=== PATIENT | female | born 1995 | race Native Hawaiian/Other Pacific Islander ===

== ENCOUNTER 2016-07-21 11:30 | Emergency (ER) | payer OTHER ==
[2016-07-21] MEDS ORDERED: SODIUM CHLORIDE 0.9% 1,000 ML IV STA (12:14)
--- NOTE | 2016-07-21 12:42 | ED ---
Abdominal Pain HPI - General Chief Complaint: Abdominal Pain Stated Complaint: 16 WEEKS PREG AND CRAMPING Time Seen by Provider: 07/21/16 12:05 Source: patient, RN notes reviewed Mode of arrival: ambulatory Limitations: no limitations - History of Present Illness Initial Comments: 21-year-old female presents to emergency room chief complaint of abdominal pain. Patient is a . Patient is 16 weeks has had a ultrasound that confirms an IUP in this . Patient denies any vaginal bleeding or discharge. Patient states pain started last any chest discomfort and crampy type pain. Patient states she has had nausea vomiting throughout the . Patient states she was concerned due to the continued pain so she thought they should be seen. Patient denies any fever or chills. Patient denies any changes in bowel or bladder habits.Patient denies any recent fever, chills, shortness of breath, chest pain, back pain, nausea vomiting, numbness or tingling, dysuria or hematuria, constipation or diarrhea, headaches or visual changes, or any other current symptoms. - Related Data Home Medications Medication Instructions Recorded Confirmed Acetaminophen Tab [Tylenol Tab] 500 mg PO Q6H PRN 07/21/16 07/21/16 Allergies Allergy/AdvReac Type Severity Reaction Status Date / Time Penicillins Allergy Rash/Hives Verified 07/21/16 12:15 Review of Systems ROS Statement: Those systems with pertinent positive or pertinent negative responses have been documented in the HPI. ROS Other: All systems not noted in ROS Statement are negative. Past Medical History Past Medical History: No Reported History History of Any Multi-Drug Resistant Organisms: None Reported Past Surgical History: No Surgical Hx Reported Past Psychological History: No Psychological Hx Reported Smoking Status: Current every day smoker Past Alcohol Use History: None Reported Past Drug Use History: None Reported General Exam - General Exam Comments Initial Comments: General: The patient is awake and alert, in no distress, and does not appear acutely ill. Eye: Pupils are equal, round and reactive to light, extra-ocular movements are intact; there is normal conjunctiva bilaterally. No signs of icterus. Ears, nose, mouth and throat: There are moist mucous membranes and no oral lesions. Neck: The neck is supple, there is no tenderness. Cardiovascular: There is a regular rate and rhythm. No murmur, rub or gallop is appreciated. Respiratory: Lungs are clear to auscultation, respirations are non-labored, breath sounds are equal. No wheezes, stridor, rales, or rhonchi. Gastrointestinal: Soft, non-distended, suprapubic tenderness of the abdomen without masses or organomegaly noted. There is no rebound or guarding present. No CVA tenderness. Bowel sounds are unremarkable. Back: There is no tenderness to palpation in the midline. There is no obvious deformity. No rashes noted. Musculoskeletal: Normal ROM, no tenderness, There is no pedal edema. There is no calf tenderness or swelling. Sensation intact. Pulses equal bilaterally 2+. Neurological: CN II-XII intact, There are no obvious motor or sensory deficits. Coordination appears grossly intact. Speech is normal. Skin: Skin is warm and dry and no rashes or lesions are noted. Psychiatric: Cooperative, appropriate mood & affect, normal judgment. Limitations: no limitations Course Vital Signs 07/21/16 12:00 Temperature 98.8 F Pulse Rate 89 Respiratory 16 Rate Blood Pressure 121/61 O2 Sat by Pulse 100 Oximetry Medical Decision Making - Medical Decision Making 21-year-old female who is currently presents for suprapubic abdominal pain. This and patient's lab work and ultrasound are reviewed that showed no acute process. This time we discussed patient's abdominal pain could be from Mark any ALLERGIES. We discussed constipation as one of the possibilities. We discussed Jeffrey the urine for culture and follow-up on this. Discussed return parameters. Patient stated that she understood. She discussed follow- up. This time she'll be discharged home. - Lab Data Result diagrams: 07/21/16 12:30 07/21/16 12:30 Lab Results 07/21/16 07/21/16 07/21/16 Range/Units 12:30 12:30 12:30 WBC 10.3 (3.8-10.6) k/uL RBC 3.46 L (3.80-5.40) m/uL Hgb 11.3 L (11.4-16.0) gm/dL Hct 32.8 L (34.0-46.0) % MCV 94.6 (80.0-100.0) fL MCH 32.7 (25.0-35.0) pg MCHC 34.5 (31.0-37.0) g/dL RDW 12.9 (11.5-15.5) % Plt Count 307 (150-450) k/uL Neutrophils % 84 % Lymphocytes % 11 % Monocytes % 3 % Eosinophils % 0 % Basophils % 0 % Neutrophils # 8.7 H (1.3-7.7) k/uL Lymphocytes # 1.2 (1.0-4.8) k/uL Monocytes # 0.3 (0-1.0) k/uL Eosinophils # 0.0 (0-0.7) k/uL Basophils # 0.0 (0-0.2) k/uL Sodium 141 (137-145) mmol/L Potassium 4.3 (3.5-5.1) mmol/L Chloride 108 H (98-107) mmol/L Carbon Dioxide 24 (22-30) mmol/L Anion Gap 9 mmol/L BUN 4 L (7-17) mg/dL Creatinine 0.51 L (0.52-1.04) mg/dL Est GFR (MDRD) Af Amer >60 (>60 ml/min/1.73 sqM) Est GFR (MDRD) Non-Af >60 (>60 ml/min/1.73 sqM) Glucose 90 (74-99) mg/dL Calcium 9.5 (8.4-10.2) mg/dL Total Bilirubin 0.6 (0.2-1.3) mg/dL AST 16 (14-36) U/L ALT 22 (9-52) U/L Alkaline Phosphatase 59 (38-126) U/L Total Protein 7.1 (6.3-8.2) g/dL Albumin 4.0 (3.5-5.0) g/dL Amylase 34 (30-110) U/L Lipase 60 (23-300) U/L Urine Color Yellow Urine Appearance Cloudy H (Clear) Urine pH 8.0 (5.0-8.0) Ur Specific [place] 1.010 (1.001-1.035) Urine Protein Negative (Negative) Urine Glucose (UA) Negative (Negative) Urine Ketones Negative (Negative) Urine Blood Negative (Negative) Urine Nitrate Negative (Negative) Urine Bilirubin Negative (Negative) Urine Urobilinogen 3.0 (<2.0) mg/dL Ur Leukocyte Esterase Trace H (Negative) Urine WBC 11 H (0-5) /hpf Ur Squamous Epith Cells 11 H (0-4) /hpf Amorphous Sediment Few H (None) /hpf Urine Mucus Few H (None) /hpf - Radiology Data Radiology results: report reviewed, image reviewed Disposition Clinical Impression: Abdominal pain affecting Disposition: HOME SELF-CARE Condition: Stable Instructions: Abdominal Pain in (ED) Additional Instructions: Please use medication as discussed. Please follow up with family doctor if symptoms have not improved over the next two days. Please return to the emergency room if your symptoms increase or worsen or for any other concerns. Referrals: Delma Tadeo MD [STAFF PHYSICIAN] - 1-2 days Time of Disposition: 14:29
[2016-07-21 12:45] LABS: Basophils % (A) 0 %; CH 33.2; CHCM 35.2; Eosinophils % (A) 0 %; HCT 32.8 % (34.0-46.0); HDW 2.29; HGB 11.3 gm/dL (11.4-16.0); Luc # (Auto) 0.07; Luc % (Auto) 1; Lymphocytes # (A) 1.2 k/uL (1.0-4.8); Lymphocytes % (A) 11 %; MCH 32.7 pg (25.0-35.0); MCHC 34.5 g/dL (31.0-37.0); MCV 94.6 fL (80.0-100.0); Mean Platelet Volume 6.9; Monocytes # (A) 0.3 k/uL (0-1.0); Monocytes % (A) 3 %; Neutrophils # (A) 8.7 k/uL (1.3-7.7); Neutrophils % (A) 84 %; RBC 3.46 m/uL (3.80-5.40); RDW 12.9 % (11.5-15.5); WBC 10.3 k/uL (3.8-10.6); WBC (Perox) 10.73
[2016-07-21 12:52] LABS: Amorphous Sediment,Urine Few /hpf; Appearance,Urine Cloudy (Clear); Bilirubin,Urine Negative (Negative); Glucose,Urine (UA) Negative (Negative); Ketones,Urine Negative (Negative); Leukocyte Esterase,Urine Trace (Negative); Mucus,Urine Few /hpf; Nitrite,Urine Negative (Negative); Particle Count 13441; Protein,Urine Negative (Negative); Squamous Epithelial Cell,Urine 11 /hpf (0-4); UA Billing (MACRO vs. MICRO) MICRO; WBC,Urine 11 /hpf (0-5)
[2016-07-21 12:54] LABS: ALT 22 U/L (9-52); AST 16 U/L (14-36); Alkaline Phosphatase 59 U/L (38-126); Amylase 34 U/L (30-110); Anion Gap 9 mmol/L; Blood Urea Nitrogen 4 mg/dL (7-17); Calcium 9.5 mg/dL (8.4-10.2); Carbon Dioxide 24 mmol/L (22-30); Chloride 108 mmol/L (98-107); Glucose 90 mg/dL (74-99); Non-African American GFR(MDRD) >60 (>60 ml/min/1.73 sqM); Potassium 4.3 mmol/L (3.5-5.1); Sodium 141 mmol/L (137-145); Total Bilirubin 0.6 mg/dL (0.2-1.3); Total Protein 7.1 g/dL (6.3-8.2)
--- NOTE | 2016-07-21 14:25 | US ---
EXAMINATION TYPE: US OB >= 14 wk fetus DATE OF EXAM: 07/21/2016 1:35 PM COMPARISON: 06/20/2016 CLINICAL HISTORY: LLQ pain, nausea, vomiting x 3 days TECHNIQUE: Transabdominal (TA) GESTATIONAL AGE / DATING Physician Established: not established Dates by LMP: unknown Dates by First Scan: (16 weeks/5 days) EDC: 12/31/2016 Dates by Current Scan: (17 weeks/0 days) EDC: 12/29/2016 SURVEY IUP: single PLACENTA: anterior PREVIA: none HAROLDO: 10.7 cm Normal CERVICAL LENGTH (transabdominal: norm > 3.0cm): 3.1 cm BIOMETRY PRESENTATION: Vertex LIE: Longitudinal BPD: 3.6 cm 17 weeks / 0 days HC: 13.4 cm 16 weeks / 6 days AC: 11.2 cm 17 weeks / 0 days FL: 2.2 cm 16 weeks / 5 days ESTIMATED WEIGHT IN GRAMS: 172.0 grams ESTIMATED WEIGHT IN LBS/OZS: 0 lbs. 6 oz. WEIGHT PERCENTAGE BASED ON ESTABLISHED DATES: 52.9% HC/AC: 1.2 Normal FL/AC: 19.9 Normal HEART RATE: 142 bpm RHYTHM: Normal. Note is made anatomy was not assessed. Impression: 1. Single, viable, IUP,17 weeks/0 days, EDC: 12/29/2016, HR 142bpm, bowel noted at LLQ at patient's a laura of pain
[2016-07-21] MEDS ORDERED: ACETAMINOPHEN TAB 500 MG TAB PO STA (14:27)
[2016-07-21 14:55] VITALS: BP 104/55; PULSE 77; RESP 18; TEMP 98.3
== END 2016-07-21 15:00 | disposition home or self-care (01) ==
LOC: EC 11:30
DX: O26.892 Other specified pregnancy related conditions, second trimester (principal); R10.30 Lower abdominal pain, unspecified; O21.9 Vomiting of pregnancy, unspecified; O99.332 Smoking (tobacco) complicating pregnancy, second trimester; F17.200 Nicotine dependence, unspecified, uncomplicated; Z3A.17 17 weeks gestation of pregnancy; Z88.0 Allergy status to penicillin
CPT/HCPCS: 36415; 76805; 80053; 81001; 82150; 83690; 85025; 87086; 96360; 96361; 99284

== ENCOUNTER → 2016-07-31 | Outpatient (CLI) | payer OTHER ==
[2016-07-31 11:56] LABS: CH 33.1; CHCM 34.6; HGB 10.8 gm/dL (11.4-16.0); MCH 32.5 pg (25.0-35.0); MCHC 33.8 g/dL (31.0-37.0); MCV 96.1 fL (80.0-100.0); Mean Platelet Volume 7.9; RBC 3.33 m/uL (3.80-5.40); RDW 13.2 % (11.5-15.5); WBC 8.5 k/uL (3.8-10.6)
[2016-07-31 12:17] LABS: ALT 21 U/L (9-52); AST 16 U/L (14-36); Glucose 83 mg/dL (74-99); Non-African American GFR(MDRD) >60 (>60 ml/min/1.73 sqM); Uric Acid 3.4 mg/dL (3.7-7.4)
[2016-07-31 12:48] LABS: Hepatitis B Surface Ag Index 0.05
[2016-07-31 17:14] LABS: Treponemal Ab Non-Reactive (Non-Reactive)
[2016-08-01 09:39] LABS: HIV-1/HIV-2 Ab Screen NONREAC (NON REAC)
== END | disposition home or self-care (01) ==
LOC: LABWHC1 11:35
PROVIDERS: ATTEND Obstetrics & Gynecology
DX: Z34.82 Encounter for supervision of other normal pregnancy, second trimester (principal); Z3A.00 Weeks of gestation of pregnancy not specified
CPT/HCPCS: 36415; 82565; 82947; 84450; 84460; 84550; 85027; 86762; 86777; 86778; 86780; 86850; 86900; 86901; 87340; 87389

== ENCOUNTER → 2016-09-24 | Outpatient (CLI) | payer OTHER ==
[2016-09-24 10:07] LABS: CH 33.1; CHCM 33.7; HCT 32.4 % (34.0-46.0); HDW 2.24; HGB 10.8 gm/dL (11.4-16.0); MCH 33.1 pg (25.0-35.0); MCHC 33.5 g/dL (31.0-37.0); MCV 98.8 fL (80.0-100.0); Mean Platelet Volume 7.9; RBC 3.27 m/uL (3.80-5.40); RDW 12.9 % (11.5-15.5); WBC 10.3 k/uL (3.8-10.6)
== END | disposition home or self-care (01) ==
LOC: LABWHC1 08:43
PROVIDERS: ATTEND Obstetrics & Gynecology
DX: Z34.82 Encounter for supervision of other normal pregnancy, second trimester (principal); Z3A.00 Weeks of gestation of pregnancy not specified
CPT/HCPCS: 36415; 82950; 85027; 86850

== ENCOUNTER 2016-10-22 17:13 | Observation (INO) | payer OTHER ==
[2016-10-22 17:31] LABS: Appearance,Urine Clear (Clear); Bilirubin,Urine Negative (Negative); Glucose,Urine (UA) Negative (Negative); Ketones,Urine Negative (Negative); Leukocyte Esterase,Urine Negative (Negative); Nitrite,Urine Negative (Negative); Protein,Urine Negative (Negative); Specific Gravity,Urine 1.002 (1.001-1.035); UA Billing (MACRO vs. MICRO) CHEM; Urobilinogen,Urine <2.0 mg/dL (<2.0)
[2016-10-22] MEDS: LACTATED RINGERS 2,000 ML IV SCH ×3 (18:00→20:34)
[2016-10-22] MEDS: NIFEdipine 10 MG CAP PO PRN ×3 (18:57→19:38)
--- NOTE | 2016-10-22 19:36 | US ---
EXAMINATION TYPE: US OB >= 14 wk fetus DATE OF EXAM: 10/22/2016 7:20 PM COMPARISON: June 20, 2016 CLINICAL HISTORY: FHR decelerations 29 weeks TECHNIQUE: Transabdominal (TA) GESTATIONAL AGE / DATING Physician Established: (29 weeks/2 days) EDC: 01/05/2017 Dates by LMP: Unsure Dates by First Scan: (29 weeks/3 days) EDC: 01/04/2017 Dates by Current Scan: (28 weeks/3 days) EDC: 01/11/2017 SURVEY IUP: Single PLACENTA: Anterior PREVIA: No Previa HAROLDO: 19.0 cm CERVICAL LENGTH (transabdominal: norm > 3.0cm): 3.5 cm BIOMETRY PRESENTATION: Breech LIE: Longitudinal BPD: 7.31 cm 29 weeks / 2 days HC: 27.27 cm 29 weeks / 5 days AC: 23.88 cm 28 weeks / 1 days FL: 5.31 cm 28 weeks / 1 days ESTIMATED WEIGHT IN GRAMS: 1224 grams ESTIMATED WEIGHT IN LBS/OZS: 2 lbs. 11 oz. WEIGHT PERCENTAGE BASED ON ESTABLISHED DATES: 13% HC/AC: 1.14 Normal FL/AC: 22.25 Normal HEART RATE: 153 bpm RHYTHM: Normal Viable IUP with an DAMARIS of 01/11/2017 on this exam IMPRESSION: The ultrasound gestational age is 28 weeks 3 days. The weight is 13% tile compared to last exam . The possibility of mild IUGR should be considered.
[2016-10-22] MEDS ORDERED: ACETAMINOPHEN TAB 325 MG TAB PO PRN (20:29)
[2016-10-22 20:37] VITALS: RESP 16
--- NOTE | 2016-10-22 22:40 | P.HPOB ---
History of Present Illness H&P Date: 10/22/16 Chief Complaint: Contractions This is a 21-year-old female 2 para 1 with an estimated date of confinement of 01/05/2017 based on her early first trimester ultrasound, estimated gestational age of 29-3/7 weeks, who presents to labor and delivery with complaints of contractions since approximate 2 PM today. She denies any rupture membranes or bleeding. She admits to good movement at this time. course has been with Dr. Courtney and has been uncomplicated up until this point. record is unavailable at this time. Her FFN was negative in triage. Pelvic ultrasound was obtained in triage and shows fetus in breech presentation with cervical length of 3.5 cm and infant weight of 2 lbs. 11 oz. or 13th percentile placenta is anterior with no previa noted. Obstetrical history: . History of 1 vaginal delivery at 39 weeks. She states that she did have preeclampsia at the end and was induced for that reason. She was never placed on magnesium or blood pressure medications. Gynecologic history: She denies any sexually transmitted diseases. Review of Systems Constitutional: Denies chills, Denies fever Cardiovascular: Denies chest pain, Denies shortness of breath Genitourinary: Reports pelvic pain, Reports Neurological: Denies numbness, Denies weakness Psychiatric: Denies anxiety, Denies depression Past Medical History Additional Past Medical History / Comment(s): History of preeclampsia with her last History of Any Multi-Drug Resistant Organisms: None Reported Past Surgical History: Orthopedic Surgery Additional Past Surgical History / Comment(s): right knee- age 11. left shoulder- age 14 Past Anesthesia/Blood Transfusion Reactions: No Reported Reaction Past Psychological History: No Psychological Hx Reported Smoking Status: Current every day smoker (States approximately half a pack per day) Past Alcohol Use History: None Reported Past Drug Use History: None Reported - Past Family History Mother Family Medical History: Cancer Additional Family Medical History / Comment(s): lymphoma, multiple myleoma Medications and Allergies Home Medications Medication Instructions Recorded Confirmed Type Acetaminophen Tab [Tylenol Tab] 500 mg PO Q6H PRN 07/21/16 07/21/16 History Allergies Allergy/AdvReac Type Severity Reaction Status Date / Time Penicillins Allergy Rash/Hives Verified 10/22/16 17:18 Exam Osteopathic Statement: *. No significant issues noted on an osteopathic structural exam other than those noted in the History and Physical/Consult. - Vital Signs Vital signs: Vital Signs Temp Pulse Resp BP Pulse Ox 10/22/16 20:36 98.6 F 110 H 16 131/66 10/22/16 17:50 97.8 F 87 18 138/83 100 Intake and Output 10/22/16 10/22/16 10/22/16 06:59 14:59 22:59 Intake Total 1999 Balance 1999 Intake: Intake, IV Titration 2000 Amount Lactated Ringers 2,000 ml 2000 @ 999 mls/hr IV .Q2H1M [facility] Rx#:[id number] Other: # Voids 2 Weight 63.503 kg Patient Weight 10/23/16 06:59 Weight 63.503 kg HEENT: Within normal limits Heart: Regular rate and rhythm Lungs: Clear to auscultation bilaterally Abdomen: , soft heart tones: Reactive with occasional small variable deceleration Contractions: Every 2-3 minutes Cervix: Closed/50%/-3 station Extremities: Negative Homans Assessment and Plan (1) uterine contractions in third trimester, antepartum Status: Acute Plan: Will admit for 24-hour observation due to continued contractions despite IV hydration and Procardia protocol with 3 doses. Will obtain CBC and give her Tylenol for pain as needed. We'll continue with Procardia 10 mg every 6 hours. If she begins to make cervical change or shows any other signs of distress, will consider transfer to tertiary care center.
--- NOTE | 2016-10-22 22:52 | P.MSEPDOC ---
Presenting Problems - Arrival Data Date of Arrival on Unit: 10/22/16 Time of Arrival on Unit: 17:13 Mode of Transport: Portable - Complaint OB-Reason for Admission/Chief Complaint: Possible Onset of Labor Medical History - Information : 2 Para: 1 Term: 1 : 0 Abortions: Spontaneous or Elective: 0 Number of Living Children: 1 - Gestational Age Expected Date of Delivery: 01/05/17 Gestational Age by DAMARIS (wks/days): 29 Weeks and 2 Days - History Complications: Smoker Review of Systems - Review of Systems Constitutional: No problems Breast: No problems ENT: No problems Cardiovascular: No problems Respiratory: No problems Gastrointestinal: No problems Genitourinary: No problems Musculoskeletal: No problems Neurological: No problems Skin: No problems Vital Signs - Temperature Temperature: 98.6 F Temperature Source: Temporal Artery Scan - Pulse Right Pulse Oximetery Pulse Rate: 110 Pulse Assessment Method: Pulse Oximetry - Respirations Respiratory Rate: 16 - Blood Pressure Right Arm Blood Pressure: 131/66 Blood Pressure Mean: 87 Blood Pressure Source: Automatic Cuff Medical Screen Scoring (Pre) - Cervical Exam Dilation: 0 cm = 0 Membranes: Intact - Uterine Contractions Frequency: < 36 weeks = 6 Duration: > 40 seconds = 2 Intensity: N/A - Maternal Vital Signs Maternal Temperature: N/A Maternal Blood Pressure: N/A Signs of Preeclampsia: N/A Maternal Respirations: N/A - Maternal Trauma Maternal Trauma: N/A - Assessment Baseline FHR: 140 Heart Rate - NICHD Category: Category I (Normal) = 0 NST: Reactive Position: N/A Station: N/A - Total Score Total Score (Pre): 8 - Level of Risk Level of Risk: Medium (6-9) Physician Notification (Pre) - Physician Notified Physician Notified Date: 10/22/16 Physician Notified Time: 17:50 Physician/Practitioner Notifed:: Dr Hoff Spoke With: Telephone New Order Received: Yes Medical Screen Scoring (Post) - Cervical Exam Dilation: 0 cm = 0 Membranes: Intact - Uterine Contractions Frequency: < 36 weeks = 6 Duration: > 40 seconds = 2 - Assessment Heart Rate - NICHD Category: Category I (Normal) = 0 - Total Score Total Score (Post): 8 - Post Treatment Level of Risk Post Treatment Level of Risk: Medium (6-9) Physician Notification (Post) - Physician Notified Physician Notified Date: 10/22/16 Physician Notified Time: 20:10 Physician/Practitioner Notified:: Dr Hoff New Order Received: Yes - Notification Comment Comment: admit OBV, IV hydration, procardia q6, continuous monitoring at this time, diet as tolerated, tylenol prn for pain Disposition - Disposition OB Disposition: Observe, LDRP Suite I agree with the RN Medical Screening Exam: Yes Risk & Benefit of care provided described in d/c instruction: No Risk & Benefit of Care Comment: NA Diagnosis: LABOR WITHOUT DELIVERY, THIRD TRIMESTER Additional Diagnoses: contractions
[2016-10-22 23:16] LABS: Basophils % (A) 0 %; CH 32.3; CHCM 33.7; Eosinophils # (A) 0.1 k/uL (0-0.7); Eosinophils % (A) 1 %; HCT 30.9 % (34.0-46.0); HDW 2.57; HGB 10.8 gm/dL (11.4-16.0); Luc % (Auto) 2; Lymphocytes # (A) 2.2 k/uL (1.0-4.8); Lymphocytes % (A) 20 %; MCH 33.8 pg (25.0-35.0); MCHC 35.1 g/dL (31.0-37.0); MCV 96.3 fL (80.0-100.0); Monocytes # (A) 0.6 k/uL (0-1.0); Monocytes % (A) 5 %; Neutrophils % (A) 72 %; RBC 3.21 m/uL (3.80-5.40); RDW 13.4 % (11.5-15.5); WBC 11.1 k/uL (3.8-10.6); WBC (Perox) 11.57
[2016-10-23 00:09] VITALS: TEMP 99.2
[2016-10-23] MEDS ORDERED: NIFEdipine 10 MG CAP PO SCH (01:30)
[2016-10-23] MEDS: NIFEdipine 10 MG CAP PO SCH ×2 (01:39→07:36)
[2016-10-23 01:41] VITALS: BP 113/60; PULSE 86
[2016-10-23] MEDS: LACTATED RINGERS 2,000 ML IV SCH (06:02)
[2016-10-23] MEDS ORDERED: LACTATED RINGERS 1,000 ML IV SCH (06:03)
[2016-10-23] MEDS ORDERED: BETAMET ACET-BETAMETH SOD PHOS 6 MG/ML VIAL IM SCH (08:00)
--- NOTE | 2016-10-23 09:02 | P.DS ---
Providers Date of admission: 10/22/16 20:16 Expected date of discharge: 10/23/16 Attending physician: Chantal Courtney Primary care physician: Chantal Courtney - Discharge Diagnosis(es) (1) uterine contractions in third trimester, antepartum Current Visit: Yes Status: Acute Hospital Course: 21-year-old presented at 29 weeks and 3 days complaining of contractions. She was vielka every 2-3 minutes. After final was negative and cervix is closed. Dr. Hoff was medical collections representative and give her some Procardia which calmed down the contractions. When I came in this morning I gave her a dose of Celestone because she is still having some contractions. She also was having some variables in the heart rate tracing. When she first came and there is some variables and then through the middle night there was some variables that went down to the 80s with good return to baseline and only lasting about 30-70 seconds. Overall the strip looks reassuring 140-145 with moderate variability and accelerations. Ultrasound showed the baby to have an HAROLDO of 19 cm, weight of 1224 g which they are calling 13th percentile. I discussed the case with the maternal medicine fellow at [facility] in [place]. They 're willing to see her today for a repeat ultrasound, umbilical Dopplers, HAROLDO and growth. She'll have to presented again tomorrow for another dose of Celestone. Patient Condition at Discharge: Stable Plan - Discharge Summary Discharge Medication List Acetaminophen Tab [Tylenol Tab] 500 mg PO Q6H PRN 07/21/16 [History] Follow up Appointment(s)/Referral(s): Chantal Courtney, [Primary Care Provider] - 1 Week (And to see MFM at [facility] [place] [place] in [place] today at 2pm) Discharge Disposition: HOME SELF-CARE
== END 2016-10-23 09:30 | disposition home or self-care (01) ==
LOC: FBPOP 17:13 → 4FBP 20:16
PROVIDERS: ADMIT Obstetrics & Gynecology; ATTEND Obstetrics & Gynecology
DX: O60.03 Preterm labor without delivery, third trimester (principal); O99.333 Smoking (tobacco) complicating pregnancy, third trimester; F17.200 Nicotine dependence, unspecified, uncomplicated; Z3A.29 29 weeks gestation of pregnancy; Z88.0 Allergy status to penicillin
CPT/HCPCS: 59025; 96360; 96361; 96372; 82731; 85025; 81003; 76805; G0463; G0378 ×2; J0702; 99214

== ENCOUNTER 2016-10-27 10:47 | Outpatient (CLI) | payer OTHER ==
[2016-10-27 11:37] VITALS: BP 156/92; PULSE 68; RESP 16; TEMP 96.7
[2016-10-27 12:03] LABS: Amorphous Sediment,Urine Rare /hpf; Appearance,Urine Clear (Clear); Bacteria,Urine Rare /hpf; Bilirubin,Urine Negative (Negative); Glucose,Urine (UA) Negative (Negative); Ketones,Urine Negative (Negative); Leukocyte Esterase,Urine Moderate (Negative); Nitrite,Urine Negative (Negative); Particle Count 3119; Protein,Urine 1+ (Negative); RBC,Urine <1 /hpf (0-5); Specific Gravity,Urine 1.003 (1.001-1.035); Squamous Epithelial Cell,Urine 1 /hpf (0-4); UA Billing (MACRO vs. MICRO) MICRO; Urobilinogen,Urine <2.0 mg/dL (<2.0); WBC,Urine 1 /hpf (0-5)
[2016-10-27 12:03] LABS: Basophils % (A) 0 %; CH 33.2; CHCM 34.3; Eosinophils # (A) 0.1 k/uL (0-0.7); Eosinophils % (A) 0 %; HCT 29.4 % (34.0-46.0); Luc # (Auto) 0.17; Luc % (Auto) 1; Lymphocytes % (A) 14 %; MCHC 33.9 g/dL (31.0-37.0); MCV 97.3 fL (80.0-100.0); Mean Platelet Volume 9.4; Monocytes # (A) 0.9 k/uL (0-1.0); Monocytes % (A) 6 %; Neutrophils # (A) 11.7 k/uL (1.3-7.7); Neutrophils % (A) 79 %; RBC 3.02 m/uL (3.80-5.40); WBC 14.8 k/uL (3.8-10.6); WBC (Perox) 15.24
[2016-10-27 12:18] LABS: ALT 71 U/L (9-52); AST 97 U/L (14-36); Blood Urea Nitrogen 9 mg/dL (7-17); LDH 909 U/L (313-618); Non-African American GFR(MDRD) >60 (>60 ml/min/1.73 sqM); Uric Acid 6.2 mg/dL (3.7-7.4)
[2016-10-27] MEDS ORDERED: MAGNESIUM SULFATE-WATER PMX 4 GM in WATER FOR INJECTION 50 50ML.BAG IVPB ONE ×2 (12:36→13:30)
[2016-10-27] MEDS ORDERED: LACTATED RINGERS 1,000 ML IV SCH (12:45)
[2016-10-27] MEDS ORDERED: MAGNESIUM SULFATE-WATER PMX 20 GM in WATER FOR INJECTION 1 500ML.BAG IV SCH (12:45)
--- NOTE | 2016-10-27 12:50 | P.HPOB ---
History of Present Illness H&P Date: 10/27/16 Chief Complaint: contractions, elevated BP 21 year old presents at 29 weeks 5 days complaining of contractions. SHe did have contractions last week and had a neg FFN, cervix was closed. She had some variables on NST and was given an appt with MFM that day. Had mildly elevated dopplers but BPP was 8/8 and reactive NST. She did have 2 doses of celestone on 10/23 and 10/24. Today her cervix is 1/thick. She is vielka but also has elevated BPs and elevated liver enzymes. She has pre-eclampsia so will be put on mag sulfate and sent by ambulance to [facility] where they can manage her pre-eclampsia and delivery/care of . Review of Systems All systems: negative Constitutional: Denies chills, Denies fever Eyes: denies blurred vision, denies pain Ears, nose, mouth and throat: Denies headache, Denies sore throat Cardiovascular: Denies chest pain, Denies shortness of breath Respiratory: Denies cough Gastrointestinal: Denies abdominal pain, Denies diarrhea, Denies nausea, Denies vomiting Genitourinary: Denies dysuria, Denies hematuria Musculoskeletal: Denies myalgias Integumentary: Denies pruritus, Denies rash Neurological: Denies numbness, Denies weakness Psychiatric: Denies anxiety, Denies depression Endocrine: Denies fatigue, Denies weight change Past Medical History Past Medical History: No Reported History Additional Past Medical History / Comment(s): History of preeclampsia with her last History of Any Multi-Drug Resistant Organisms: None Reported Past Surgical History: Orthopedic Surgery Additional Past Surgical History / Comment(s): right knee- age 11. left shoulder- age 14 Past Anesthesia/Blood Transfusion Reactions: No Reported Reaction Past Psychological History: No Psychological Hx Reported Smoking Status: Current every day smoker Past Alcohol Use History: None Reported Past Drug Use History: None Reported - Past Family History Mother Family Medical History: Cancer Additional Family Medical History / Comment(s): lymphoma, multiple myleoma Medications and Allergies Allergies Allergy/AdvReac Type Severity Reaction Status Date / Time Penicillins Allergy Rash/Hives Verified 10/22/16 17:18 Exam Osteopathic Statement: *. No significant issues noted on an osteopathic structural exam other than those noted in the History and Physical/Consult. - Vital Signs Vital signs: Vital Signs Temp Pulse Resp BP 10/27/16 11:22 96.7 F L 68 16 156/92 Intake and Output 10/26/16 10/27/16 10/27/16 22:59 06:59 14:59 Other: Weight 150 kg Patient Weight 10/28/16 06:59 Weight 150 kg HEart: RRR Lungs: CTAB ABdomen: soft, nontender Extremeties: neg luz's Results Result Diagrams: 10/27/16 11:48 10/27/16 11:48 Abnormal Lab Results - Last 24 Hours (Table) 10/27/16 10/27/16 10/27/16 Range/Units 11:38 11:48 11:48 WBC 14.8 H (3.8-10.6) k/uL RBC 3.02 L (3.80-5.40) m/uL Hgb 10.0 L (11.4-16.0) gm/dL Hct 29.4 L (34.0-46.0) % Neutrophils # 11.7 H (1.3-7.7) k/uL AST 97 H (14-36) U/L ALT 71 H (9-52) U/L Lactate Dehydrogenase 909 H (313-618) U/L Urine Protein 1+ H (Negative) Ur Leukocyte Esterase Moderate H (Negative) Amorphous Sediment Rare H (None) /hpf Urine Bacteria Rare H (None) /hpf Assessment and Plan (1) Severe pre-eclampsia Status: Acute Plan: 1. start mag sulfate 2. call EMS and transfer to [facility]. case was discussed with the M fellow; Ruddy Dobbs
--- NOTE | 2016-10-27 12:59 | US ---
EXAMINATION TYPE: US OB >= 14 wk fetus DATE OF EXAM: 10/27/2016 12:16 PM COMPARISON: None CLINICAL HISTORY: 21-year-old female labor TECHNIQUE: Transabdominal (TA) FINDINGS: GESTATIONAL AGE / DATING Physician Established: (30 weeks/0 days) EDC: 01/05/17 Dates by LMP: unknown Dates by First Scan: (30 weeks/1 days) EDC: 01/04/17 Dates by Current Scan: (29 weeks/1 days) EDC: 01/11/17 SURVEY IUP: Single PLACENTA: Anterior PREVIA: No Previa HAROLDO: 11.7 cm normal CERVICAL LENGTH (transabdominal: norm > 3.0cm): 3.0 cm BIOMETRY PRESENTATION: Vertex LIE: Longitudinal BPD: 7.5 cm 30 weeks / 2 days HC: 27.8 cm 30 weeks / 3 days AC: 24.7 cm 28 weeks / 6 days FL: 5.5 cm 29 weeks / 0 days ESTIMATED WEIGHT IN GRAMS: 1350 grams ESTIMATED WEIGHT IN LBS/OZS: 3 lbs. 0 oz. WEIGHT PERCENTAGE BASED ON ESTABLISHED DATES: 14.5% VS 13.0% on 10/22/16 (exam performed too soon for assessment of appropriate interval growth) HC/AC: 1.13 normal FL/AC: 22.28 normal HEART RATE: 142 bpm RHYTHM: Normal IMPRESSION: 1. Single live uterine with established gestational age of 30 weeks 0 days. Current ultraso und biometry is smaller but concordant (29 weeks 1 day). The ultrasound machine indicates EFW at the 15th percentile by Hadlock. 2. It has been too soon to assess for appropriate interval growth as compared to 10/22/2016. Further f ollowup as indicated given the EFW percentile. 3. Cervical length at the lower limits of normal at 3.0 cm.
== END 2016-10-27 13:47 ==
LOC: FBPOP 10:47
PROVIDERS: ATTEND Obstetrics & Gynecology
DX: O14.14 Severe pre-eclampsia complicating childbirth (principal); Z3A.29 29 weeks gestation of pregnancy
CPT/HCPCS: 59025; 96365; 82731; 82565; 83615; 84450; 84460; 84520; 84550; 85025; 81001; 76805; G0463; J3475 ×2; 51702; 96361; 99215

== ENCOUNTER 2018-09-02 20:13 | Emergency (ER) | payer OTHER ==
[2018-09-02] MEDS ORDERED: SODIUM CHLORIDE 0.9% 1,000 ML IV ONE (20:29)
[2018-09-02] MEDS ORDERED: ACETAMINOPHEN TAB 500 MG TAB PO STA (20:30)
[2018-09-02 20:58] LABS: Basophils % (A) 0 %; Eosinophils # (A) 0.1 k/uL (0-0.7); Eosinophils % (A) 1 %; HCT 37.4 % (34.0-46.0); HGB 12.5 gm/dL (11.4-16.0); Lymphocytes # (A) 1.1 k/uL (1.0-4.8); Lymphocytes % (A) 8 %; MCH 32.4 pg (25.0-35.0); MCHC 33.6 g/dL (31.0-37.0); MCV 96.7 fL (80.0-100.0); Mean Platelet Volume 7.2; Monocytes # (A) 0.3 k/uL (0-1.0); Monocytes % (A) 2 %; Neutrophils % (A) 88 %; Platelet Count 298 k/uL (150-450); RBC 3.86 m/uL (3.80-5.40); RDW 13.3 % (11.5-15.5); WBC 12.5 k/uL (3.8-10.6)
[2018-09-02 21:07] LABS: Potassium 3.5 mmol/L (3.5-5.1)
[2018-09-02 21:08] LABS: ALT 22 U/L (9-52); AST 19 U/L (14-36); Albumin 4.1 g/dL (3.5-5.0); Alkaline Phosphatase 64 U/L (38-126); Anion Gap 10 mmol/L; Blood Urea Nitrogen 5 mg/dL (7-17); Carbon Dioxide 22 mmol/L (22-30); Chloride 107 mmol/L (98-107); Glucose 110 mg/dL (74-99); Sodium 139 mmol/L (137-145); Total Bilirubin 0.6 mg/dL (0.2-1.3); Total Protein 7.2 g/dL (6.3-8.2)
[2018-09-02] MEDS ORDERED: KETOROLAC 30 MG/ML 1 ML VIAL IVP STA (21:34)
--- NOTE | 2018-09-02 21:35 | ED ---
General Adult HPI - General Chief complaint: Fever Stated complaint: High Fever/Loss of mobility/Bilateral ear pain Time Seen by Provider: 09/02/18 20:34 Source: patient Mode of arrival: ambulatory Limitations: no limitations - History of Present Illness Initial comments: Dictation was produced using [employer] dictation software. please excuse any grammatical, word or spelling errors. Chief Complaint: 23-year-old female no significant past medical history presents with fever and URI type symptoms. History of Present Illness: A 3-year-old female. She presents today with worsening URI type symptoms. Patient states she initially felt sick starting on Thursday. Patient states that her symptoms slowly progressed to today where they became really bad. Patient states that she's been having coughing, runny nose, sore throat. Patient's significant other was also sick with similar symptoms. She also has other family members have similar symptoms as well. The ROS documented in this emergency department record has been reviewed and confirmed by me. Those systems with pertinent positive or negative responses have been documented in the HPI. All other systems are other negative and/or noncontributory. PHYSICAL EXAM: General Impression: Alert and oriented x3, not in acute distress HEENT: Normocephalic atraumatic, extra-ocular movements intact, pupils equal and reactive to light bilaterally, mucous membranes moist, boggy nasal turbinates, erythematous posterior oropharynx Cardiovascular: Heart regular rate and rhythm, S1&S2 audible, no murmurs, rubs or gallops Chest: Lungs clear to auscultation bilaterally, no rhonchi, no wheeze, no rales Abdomen: Bowel sounds present, abdomen soft, non-tender, non-distended, no organomegaly Musculoskeletal: Pulses present and equal in all extremities, no peripheral edema Motor: Power 5/5 bilaterally, no focal deficits noted Neurological: CN II-XII grossly intact, no focal motor or sensory deficits noted Skin: Intact with no visualized rashes Psych: Normal affect and mood ED course: 23-year-old female presents with URI type symptoms. As upon arrival shows temperature 100.1, heart rate 133, rest of vital signs within acceptable limits.Laboratory evaluation obtained. Mild symptoms of 2.5. Metabolic panel is unremarkable. Urinalysis is positive for nitrates however there is 3 to be BCs. Urine sent for culture. Influenza and rapid strep test negative. Pending throat cultures. Chest x-ray shows findings to suggest pneumonia. Patient given 500 mg of azithromycin. She is given Tylenol and Toradol. Patient be discharged. She will be given prescription for antibiotics to treat pneumonia. Must follow-up with PCP upon discharge. - Related Data Home Medications Medication Instructions Recorded Confirmed Acetaminophen [Tylenol Extra 500 mg PO Q6H PRN 09/02/18 09/02/18 Strength] Ibuprofen [Motrin] 800 mg PO BID PRN 09/02/18 09/02/18 Previous Rx's Medication Instructions Recorded Azithromycin [Zithromax] 250 mg PO DAILY 4 Days #4 tab 09/02/18 Allergies Allergy/AdvReac Type Severity Reaction Status Date / Time Penicillins Allergy Rash/Hives Verified 09/02/18 20:37 Review of Systems ROS Statement: Those systems with pertinent positive or pertinent negative responses have been documented in the HPI. ROS Other: All systems not noted in ROS Statement are negative. Past Medical History Past Medical History: No Reported History Additional Past Medical History / Comment(s): History of preeclampsia with her last History of Any Multi-Drug Resistant Organisms: None Reported Past Surgical History: Orthopedic Surgery Additional Past Surgical History / Comment(s): right knee- age 11. left shoulder- age 14 Past Anesthesia/Blood Transfusion Reactions: No Reported Reaction Past Psychological History: No Psychological Hx Reported Smoking Status: Current every day smoker Past Alcohol Use History: Occasional Past Drug Use History: None Reported - Past Family History Mother Family Medical History: Cancer Additional Family Medical History / Comment(s): lymphoma, multiple myleoma General Exam Limitations: no limitations Course Vital Signs 09/02/18 09/02/18 09/02/18 20:24 21:55 23:26 Temperature 103.1 F H 101.3 F H 99.7 F H Pulse Rate 133 H 94 Respiratory 18 16 Rate Blood Pressure 133/88 116/75 O2 Sat by Pulse 98 96 Oximetry Medical Decision Making - Lab Data Result diagrams: 09/02/18 20:46 09/02/18 20:46 Lab Results 09/02/18 09/02/18 09/02/18 Range/Units 01:50 20:46 20:46 WBC 12.5 H (3.8-10.6) k/uL RBC 3.86 (3.80-5.40) m/uL Hgb 12.5 (11.4-16.0) gm/dL Hct 37.4 (34.0-46.0) % MCV 96.7 (80.0-100.0) fL MCH 32.4 (25.0-35.0) pg MCHC 33.6 (31.0-37.0) g/dL RDW 13.3 (11.5-15.5) % Plt Count 298 (150-450) k/uL Neutrophils % 88 % Lymphocytes % 8 % Monocytes % 2 % Eosinophils % 1 % Basophils % 0 % Neutrophils # 11.0 H (1.3-7.7) k/uL Lymphocytes # 1.1 (1.0-4.8) k/uL Monocytes # 0.3 (0-1.0) k/uL Eosinophils # 0.1 (0-0.7) k/uL Basophils # 0.0 (0-0.2) k/uL Sodium 139 (137-145) mmol/L Potassium 3.5 (3.5-5.1) mmol/L Chloride 107 (98-107) mmol/L Carbon Dioxide 22 (22-30) mmol/L Anion Gap 10 mmol/L BUN 5 L (7-17) mg/dL Creatinine 0.54 (0.52-1.04) mg/dL Est GFR (CKD-EPI)AfAm >90 (>60 ml/min/1.73 sqM) Est GFR (CKD-EPI)NonAf >90 (>60 ml/min/1.73 sqM) Glucose 110 H (74-99) mg/dL Plasma Lactic Acid Jerson (0.7-2.0) mmol/L Calcium 9.0 (8.4-10.2) mg/dL Total Bilirubin 0.6 (0.2-1.3) mg/dL AST 19 (14-36) U/L ALT 22 (9-52) U/L Alkaline Phosphatase 64 (38-126) U/L Total Protein 7.2 (6.3-8.2) g/dL Albumin 4.1 (3.5-5.0) g/dL Urine Color Urine Appearance (Clear) Urine pH (5.0-8.0) Ur Specific Celina (1.001-1.035) Urine Protein (Negative) Urine Glucose (UA) (Negative) Urine Ketones (Negative) Urine Blood (Negative) Urine Nitrite (Negative) Urine Bilirubin (Negative) Urine Urobilinogen (<2.0) mg/dL Ur Leukocyte Esterase (Negative) Urine RBC (0-5) /hpf Urine WBC (0-5) /hpf Ur Squamous Epith Cells (0-4) /hpf Urine Bacteria (None) /hpf Urine HCG, Qual (Not Detectd) Influenza Type A RNA (Not Detectd) Influenza Type B (PCR) (Not Detectd) Group A Strep Rapid Negative (Negative) 09/02/18 09/02/18 09/02/18 Range/Units 20:46 20:46 21:50 WBC (3.8-10.6) k/uL RBC (3.80-5.40) m/uL Hgb (11.4-16.0) gm/dL Hct (34.0-46.0) % MCV (80.0-100.0) fL MCH (25.0-35.0) pg MCHC (31.0-37.0) g/dL RDW (11.5-15.5) % Plt Count (150-450) k/uL Neutrophils % % Lymphocytes % % Monocytes % % Eosinophils % % Basophils % % Neutrophils # (1.3-7.7) k/uL Lymphocytes # (1.0-4.8) k/uL Monocytes # (0-1.0) k/uL Eosinophils # (0-0.7) k/uL Basophils # (0-0.2) k/uL Sodium (137-145) mmol/L Potassium (3.5-5.1) mmol/L Chloride (98-107) mmol/L Carbon Dioxide (22-30) mmol/L Anion Gap mmol/L BUN (7-17) mg/dL Creatinine (0.52-1.04) mg/dL Est GFR (CKD-EPI)AfAm (>60 ml/min/1.73 sqM) Est GFR (CKD-EPI)NonAf (>60 ml/min/1.73 sqM) Glucose (74-99) mg/dL Plasma Lactic Acid Jerson 1.0 (0.7-2.0) mmol/L Calcium (8.4-10.2) mg/dL Total Bilirubin (0.2-1.3) mg/dL AST (14-36) U/L ALT (9-52) U/L Alkaline Phosphatase (38-126) U/L Total Protein (6.3-8.2) g/dL Albumin (3.5-5.0) g/dL Urine Color Urine Appearance (Clear) Urine pH (5.0-8.0) Ur Specific Celina (1.001-1.035) Urine Protein (Negative) Urine Glucose (UA) (Negative) Urine Ketones (Negative) Urine Blood (Negative) Urine Nitrite (Negative) Urine Bilirubin (Negative) Urine Urobilinogen (<2.0) mg/dL Ur Leukocyte Esterase (Negative) Urine RBC (0-5) /hpf Urine WBC (0-5) /hpf Ur Squamous Epith Cells (0-4) /hpf Urine Bacteria (None) /hpf Urine HCG, Qual Not Detected (Not Detectd) Influenza Type A RNA Not Detected (Not Detectd) Influenza Type B (PCR) Not Detected (Not Detectd) Group A Strep Rapid (Negative) 09/02/18 Range/Units 21:50 WBC (3.8-10.6) k/uL RBC (3.80-5.40) m/uL Hgb (11.4-16.0) gm/dL Hct (34.0-46.0) % MCV (80.0-100.0) fL MCH (25.0-35.0) pg MCHC (31.0-37.0) g/dL RDW (11.5-15.5) % Plt Count (150-450) k/uL Neutrophils % % Lymphocytes % % Monocytes % % Eosinophils % % Basophils % % Neutrophils # (1.3-7.7) k/uL Lymphocytes # (1.0-4.8) k/uL Monocytes # (0-1.0) k/uL Eosinophils # (0-0.7) k/uL Basophils # (0-0.2) k/uL Sodium (137-145) mmol/L Potassium (3.5-5.1) mmol/L Chloride (98-107) mmol/L Carbon Dioxide (22-30) mmol/L Anion Gap mmol/L BUN (7-17) mg/dL Creatinine (0.52-1.04) mg/dL Est GFR (CKD-EPI)AfAm (>60 ml/min/1.73 sqM) Est GFR (CKD-EPI)NonAf (>60 ml/min/1.73 sqM) Glucose (74-99) mg/dL Plasma Lactic Acid Jerson (0.7-2.0) mmol/L Calcium (8.4-10.2) mg/dL Total Bilirubin (0.2-1.3) mg/dL AST (14-36) U/L ALT (9-52) U/L Alkaline Phosphatase (38-126) U/L Total Protein (6.3-8.2) g/dL Albumin (3.5-5.0) g/dL Urine Color Colorless Urine Appearance Clear (Clear) Urine pH 6.0 (5.0-8.0) Ur Specific Celina 1.002 (1.001-1.035) Urine Protein Negative (Negative) Urine Glucose (UA) Negative (Negative) Urine Ketones Negative (Negative) Urine Blood Negative (Negative) Urine Nitrite Positive H (Negative) Urine Bilirubin Negative (Negative) Urine Urobilinogen <2.0 (<2.0) mg/dL Ur Leukocyte Esterase Negative (Negative) Urine RBC 1 (0-5) /hpf Urine WBC 3 (0-5) /hpf Ur Squamous Epith Cells 4 (0-4) /hpf Urine Bacteria Rare H (None) /hpf Urine HCG, Qual (Not Detectd) Influenza Type A RNA (Not Detectd) Influenza Type B (PCR) (Not Detectd) Group A Strep Rapid (Negative) Disposition Clinical Impression: Pneumonia Disposition: HOME SELF-CARE Condition: Good Instructions (If sedation given, give patient instructions): Pneumonia (ED) Prescriptions: Azithromycin [Zithromax] 250 mg PO DAILY 4 Days #4 tab Is patient prescribed a controlled substance at d/c from ED?: No Referrals: None,Stated [Primary Care Provider] - 1-2 days Time of Disposition: 23:46
[2018-09-02 22:15] LABS: Appearance,Urine Clear (Clear); Bacteria,Urine Rare /hpf; Bilirubin,Urine Negative (Negative); Blood,Urine Negative (Negative); Color,Urine Colorless; Glucose,Urine (UA) Negative (Negative); Ketones,Urine Negative (Negative); Leukocyte Esterase,Urine Negative (Negative); Nitrite,Urine Positive (Negative); Protein,Urine Negative (Negative); RBC,Urine 1 /hpf (0-5); Specific Gravity,Urine 1.002 (1.001-1.035); Squamous Epithelial Cell,Urine 4 /hpf (0-4); Urobilinogen,Urine <2.0 mg/dL (<2.0)
--- NOTE | 2018-09-02 22:38 | XR ---
EXAM: XR Chest, 2 Views CLINICAL HISTORY: ITS.REASON XR Reason: Pain TECHNIQUE: Frontal and lateral views of the chest. COMPARISON: No relevant prior studies available. FINDINGS: Lungs: Right middle lobe airspace disease concerning for acute infiltrate. Pleural space: Unremarkable. No pneumothorax. Heart: Unremarkable. No cardiomegaly. Mediastinum: Unremarkable. Bones/joints: Unremarkable. IMPRESSION: Right middle lobe infiltrate which could represent pneumonia.
[2018-09-02] MEDS ORDERED: AZITHROMYCIN 500 MG TAB PO STA (22:47)
[2018-09-02 23:28] VITALS: BP 116/75; PULSE 94; RESP 16; TEMP 99.7
== END 2018-09-02 23:59 | disposition home or self-care (01) ==
LOC: EC 20:13
DX: J18.9 Pneumonia, unspecified organism (principal); F17.200 Nicotine dependence, unspecified, uncomplicated; Z88.0 Allergy status to penicillin
CPT/HCPCS: 36415; 80053; 83605; 85025; 81001; 81025; 87086; 87081; 87430; 87502; 71046; 99283; 96374; 96361; J1885

== ENCOUNTER 2021-10-02 03:26 | Emergency (ER) | payer OTHER ==
[2021-10-02 04:13] VITALS: TEMP 98.5
[2021-10-02] MEDS ORDERED: ACETAMINOPHEN TAB 325 MG TAB PO STA (04:14)
[2021-10-02] MEDS ORDERED: IBUPROFEN 600 MG TAB PO STA (04:14)
[2021-10-02] MEDS ORDERED: HYDROmorphone 1 MG/ML 1 ML SYRINGE IM STA (04:37)
--- NOTE | 2021-10-02 04:48 | XR ---
EXAMINATION TYPE: XR ankle complete RT DATE OF EXAM: 10/02/2021 COMPARISON: NONE HISTORY: Fall down the stairs. Pain. TECHNIQUE: 3 views FINDINGS: There is nondisplaced transverse fracture through the medial malleolus. There is oblique fr acture through the distal fibula. There is soft tissue swelling around the ankle joint. There is no d islocation. The talus is intact. Calcaneus is intact. IMPRESSION: There is bimalleolar fracture of the right ankle with soft tissue swelling. No significan t overall displacement.
[2021-10-02] MEDS ORDERED: ACET/COD 300 MG/30 MG STARTER PACK 6 TAB BTL PO STA (06:19)
--- NOTE | 2021-10-02 06:19 | ED ---
Fall HPI - General Chief Complaint: Fall Stated Complaint: right ankle pain, fall Time Seen by Provider: 10/02/21 05:45 Source: patient, family, RN notes reviewed Mode of arrival: wheelchair Limitations: physical limitation - History of Present Illness Initial Comments: This a 26-year-old female presents emergency Department chief complaint of right ankle injury. Patient states that her dog tripped her cholesterol her ankle. Patient is right ankle pain and swelling. No prior fractures. Patient had no other muscle skeletal injuries no head injury no foot pain. - Related Data Home Medications Medication Instructions Recorded Confirmed Acetaminophen [Tylenol Extra 500 mg PO Q6H PRN 09/02/18 09/02/18 Strength] Ibuprofen [Motrin] 800 mg PO BID PRN 09/02/18 09/02/18 Previous Rx's Medication Instructions Recorded Azithromycin [Zithromax] 250 mg PO DAILY 4 Days #4 tab 09/02/18 Allergies Allergy/AdvReac Type Severity Reaction Status Date / Time Penicillins Allergy Rash/Hives Verified 10/02/21 04:13 Review of Systems ROS Statement: Those systems with pertinent positive or pertinent negative responses have been documented in the HPI. ROS Other: All systems not noted in ROS Statement are negative. Past Medical History Past Medical History: No Reported History Additional Past Medical History / Comment(s): History of preeclampsia with her last History of Any Multi-Drug Resistant Organisms: None Reported Past Surgical History: Orthopedic Surgery Additional Past Surgical History / Comment(s): right knee- age 11. left shoulder- age 14 Past Anesthesia/Blood Transfusion Reactions: No Reported Reaction Past Psychological History: No Psychological Hx Reported Smoking Status: Current every day smoker Past Alcohol Use History: Occasional Past Drug Use History: None Reported - Past Family History Mother Family Medical History: Cancer Additional Family Medical History / Comment(s): lymphoma, multiple myleoma General Exam Limitations: no limitations General appearance: alert, in no apparent distress Head exam: Present: atraumatic, normocephalic, normal inspection Respiratory exam: Present: normal lung sounds bilaterally. Absent: respiratory distress, wheezes, rales, rhonchi, stridor Cardiovascular Exam: Present: regular rate, normal rhythm, normal heart sounds. Absent: systolic murmur, diastolic murmur, rubs, gallop, clicks Extremities exam: Present: other (Right ankle there is lateral and medial malar tenderness, mild swelling, pain with range of motion no foot tenderness no proximal tib-fib tenderness) Neurological exam: Present: alert, oriented X3 Course Vital Signs 10/02/21 10/02/21 04:11 06:41 Temperature 98.5 F Pulse Rate 124 H 101 H Respiratory 18 16 Rate Blood Pressure 124/78 124/79 O2 Sat by Pulse 99 96 Oximetry Procedures - Orthopedic Splinting/Casting Injury #1 Side: right Lower Extremity Injury Location: short leg, ankle Lower Extremity Immobilizer: posterior splint, synthetic pre-padded splint Other Orthopedic Equipment: crutches Medical Decision Making - Medical Decision Making Right ankle is splinted, patient will follow-up with orthopedics. Return parameters were discussed. She is neurovascularly intact. Disposition Clinical Impression: Fall, Bimalleolar fracture of right ankle Disposition: HOME SELF-CARE Condition: Stable Instructions (If sedation given, give patient instructions): Ankle Fracture (ED) Additional Instructions: Please return to the Emergency Department if symptoms worsen or any other concerns. Is patient prescribed a controlled substance at d/c from ED?: No Referrals: None,Stated [Primary Care Provider] - 1-2 days Lawrence Burns MD [STAFF PHYSICIAN] - 1-2 days Time of Disposition: 06:19
[2021-10-02 06:41] VITALS: BP 124/79; PULSE 101; RESP 16
== END 2021-10-02 07:16 | disposition home or self-care (01) ==
LOC: EC 03:26
DX: S82.841A Displaced bimalleolar fracture of right lower leg, initial encounter for closed fracture (principal); F17.200 Nicotine dependence, unspecified, uncomplicated; Z88.0 Allergy status to penicillin; W54.1XXA Struck by dog, initial encounter
CPT/HCPCS: 99283; 96372; 29515; 73610; J1170

== ENCOUNTER → 2021-10-09 | Day surgery (SDC) | payer OTHER ==
[2021-10-07 09:32] VITALS: BMI 25.6
--- NOTE | 2021-10-08 20:35 | P.HPOR ---
History of Present Illness H&P Date: 10/08/21 Chief Complaint: Right ankle fracture New Patient Foot/Ankle Office Note/H&P Age: 27 year Height: 5'10" Weight: 150 lbs BMI: 21.52 kg/m2 Subjective: This is a 27 year old male that presents today for initial evaluation regarding a right ankle injury that occurred on 10/02/2021 when her dog ran between her legs and she fell down the stairs at home. She was seen in the emergency department and was placed in a ankle splint and has been nonweightbearing using crutches. She has significant pain around her right ankle. She denies any prior injury to this ankle in the past and has been resting, icing and elevating extremity. 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 Physical Examination: RLE: 11/21 EHL/FHL/PF/DF. SILT L5-S1. 2+/4 DP/PT pulses palpated. TTP over lateral/medial malleolus. Bruising and swelling present. Compartments are soft and compressible. Imaging: X-Rays of the right ankle demonstrate a trimalleolar ankle fracture with an oblique distal fibula fracture and transverse medial malleolus fracture. Small avulsion off the posterior malleolus. Impression: 1.) Right Trimalleolar ankle fracture, displaced. Plan: Diagnosis and treatment options were discussed with the patient. I recommended surgical intervention for her right trimalleolar ankle fracture. Risks and benefits of surgery were discussed with the patient including bleeding, damage surrounding tissue need for further surgery, possibility of irritable hardware requiring removal in the future. She was agreeable with this plan of action will be scheduled for outpatient right ankle open reduction internal fixation in the near future. She is to be off of work until further evaluation. Postoperatively she will require likely 4-6 weeks of immobilization until fracture healing is present on imaging. -Harjit Gambino DO Orthopedic Surgeon Past Medical History Past Medical History: Hypertension Additional Past Medical History / Comment(s): Hx Preeclampsia with last , continued with elevated BP for short time afterward but resolved now. History of Any Multi-Drug Resistant Organisms: None Reported Past Surgical History: Orthopedic Surgery Additional Past Surgical History / Comment(s): Right knee- age 11, left shoulder- age 14. Past Anesthesia/Blood Transfusion Reactions: No Reported Reaction Past Psychological History: No Psychological Hx Reported Smoking Status: Current every day smoker Past Alcohol Use History: Occasional Additional Past Alcohol Use History / Comment(s): Has been smoking since age 17, 4-5 cigarettes daily. Past Drug Use History: None Reported - Past Family History Mother Family Medical History: Cancer Additional Family Medical History / Comment(s): Lymphoma, multiple myleoma. Medications and Allergies Home Medications Medication Instructions Recorded Confirmed Type No Known Home Medications 10/07/21 10/07/21 History Allergies Allergy/AdvReac Type Severity Reaction Status Date / Time Penicillins Allergy Rash/Hives Verified 10/07/21 09:21 Physical Examination Osteopathic Statement: *. No significant issues noted on an osteopathic structural exam other than those noted in the History and Physical/Consult.
[~2021-10-09] MED LIST: DEXAMETHASONE SOD PHOSPHATE 4 MG/ML 1 ML VIAL IV ONE; DEXAMETHASONE SOD PHOSPHATE 4 MG/ML 1 ML VIAL ONE; HYDROcodone/APAP 5-325MG 1 EACH TAB ONE; HYDROcodone/APAP 5-325MG 1 EACH TAB PO ONE; HYDROmorphone (PF) 1 MG/ML ONE; LACTATED RINGERS 1,000 ML IV ONE; LACTATED RINGERS 1,000 ML IV SCH; LIDOCAINE 1% (10MG/ML) FOR IV START INTRADERMA PRN; LIDOCAINE 1% INJ 10MG/ML (20 ML MDV) ONE; MIDAZOLAM 2 MG/2 ML VIAL IVP ONE; ONDANSETRON 4 MG/2 ML VIAL IVP ONE; PROPOFOL 10 MG/ML 20 ML VIAL IV ONE; ROPIVACAINE 5 MG/ML 30 ML VIAL ONE; SODIUM CHLORIDE 0.9% (PF) 10 ML VIAL ONE; SUCCINYLCHOLINE CHLORIDE 100 MG/5 ML SYR IV ONE; diphenhydrAMINE 50 MG/ML 1 ML VIAL IVP ONE; fentaNYL (PF) 50 MCG/ML 2 ML AMP ONE
[2021-10-09 10:03] VITALS: RESP 16
--- NOTE | 2021-10-09 11:06 | P.ANPRN ---
Procedure Note - Anesthesia - Nerve Block Performed Right Adductor Canal Single Time Out Performed: Yes (1047) Date of Procedure: 10/09/21 Procedure Start Time: 10:50 Procedure Stop Time: 11:00 Location of Patient: PreOp Indication: Acute Post-Operative Pain, Requested by Surgeon Sedation Type: Sedate with meaningful contact maintained Preparation: Sterile Prep Position: Supine Catheter: None Needle Types: Pajunk Needle Gauge: 20 Ultrasound used to visualize needle placement: Yes Ultrasound used to observe medication spread: Yes Injectate: 0.5% Ropivacaine (see comment for volume) Blood Aspirated: No Pain Paresthesia on Injection Noted: No Resistance on Injection: Normal Image Stored and Saved: Yes Events: Uneventful and Well Tolerated (20 mL of block solution containing- 10 mL of 0.5% preservative-free ropivacaine mixed with 10 mL of preservative free normal saline)
--- NOTE | 2021-10-09 11:08 | P.ANPRN ---
Procedure Note - Anesthesia - Nerve Block Performed Right Popliteal Single Time Out Performed: Yes (1047) Date of Procedure: 10/09/21 Procedure Start Time: 10:50 Procedure Stop Time: 11:00 Location of Patient: PreOp Indication: Acute Post-Operative Pain, Requested by Surgeon Sedation Type: Sedate with meaningful contact maintained Preparation: Sterile Prep Position: Right Lateral Catheter: None Needle Types: Pajunk Needle Gauge: 20 Ultrasound used to visualize needle placement: Yes Ultrasound used to observe medication spread: Yes Injectate: 0.5% Ropivacaine (see comment for volume) (25 mL of block solution containing- 15 mL of 0.5% preservative-free ropivacaine mixed with 4 MG of dexamethasone, and 9 mL of preservative free normal saline) Blood Aspirated: No Pain Paresthesia on Injection Noted: No Resistance on Injection: Normal Image Stored and Saved: Yes Events: Uneventful and Well Tolerated
[2021-10-09 14:39] VITALS: TEMP 97.2
[2021-10-09] MEDS: HYDROmorphone 0.5 MG/0.5 ML SYRINGE IVP PRN ×3 (14:46→15:09)
[2021-10-09 15:54] VITALS: BP 122/86; PULSE 68
--- NOTE | 2021-10-09 15:57 | FL ---
Fluoroscopy INDICATION: Pain FINDINGS: Fluoroscopy time: 21 seconds. Images obtained: 3. IMPRESSIONS: 1. Documentation of fluoroscopy.
--- NOTE | 2021-10-09 21:58 | P.OP ---
Date of Procedure: 10/09/21 Preoperative Diagnosis: 1.) Right ankle trimalleolar fracture, displaced. Postoperative Diagnosis: 1.) Right ankle trimalleolar fracture, displaced. Procedure(s) Performed: Open treatment of right trimalleolar ankle fracture, includes internal fixation, when performed, medial and/or lateral malleolus ([id number]). Implants: 1.) Arthrex anatomic distal fibular locking plate. 2.) 4.0 Arthrex stainless steel cannulated screws 55mm x2. Anesthesia: BELEN, regional Surgeon: Harjit Gambino Milling Machine Tender #1: Alek Lind Estimated Blood Loss (ml): 30 Pathology: none sent Condition: stable Disposition: PACU Description of Procedure: This is a 26 year old female who sustained a right trimalleolar ankle fracture after a fall down stairs after she tripped over her dog. Due to fracture pattern and amount of displacement surgical intervention was planned and she presents today for right ankle ORIF. Risks and benefits of surgery were discussed with the patient including bleeding, damage to surrounding tissue, infection, need for further surgery, post traumatic arthritis, irritable hardware as well as risks of anesthesia including pulmonary embolism, DVT, and even and the patient wished to proceed with surgical intervention. The patient was seen in the pre-operative area by myself. Consent and H&P were completed and updated. The correct extremity was marked in the pre-operative area by myself and all other questions were answered. Operative Narrative: The patient was brought to the operating room by the department of anesthesia. The patient was transferred to the operative bed and all meche pr ominences were well padded. Pre-operative time out was performed indicating the correct patient, procedure and laterality. All in the room agreed. Pre-operative antibiotics were given prior to skin incision. The patient was then drifted off to sleep by the department of anesthesia. A nonsterile tourniquet was then applied to the operative extremity and the right lower extremity was then prepped and draped in normal sterile fashion. The operative extremity was the exsanguinated with an esmarch bandage and the tourniquet was inflated to 250mmHg. Posterolateral approach to the fibula was performed and a longitudinal incision was made over the distal fibula with 10 blade scalpel. Blunt dissection was taken down through subcutaneous tissues identifying the superficial peroneal nerve at the proximal portion of the incision and keeping it protected throughout the procedure. Scalpel was then used to incise periosteum and the fracture line was identified. There was extensive comminution of the anterior cortex of the fibula with a free floating devitalized piece of bone located in the anterior soft tissue which was excised and too small for any type of fixation. Fracture site was irrigated a debrided of hematoma with curette. Pointed reduction clamp was used to hold the fracture out to length and satisfactory reduction was able to be held but was unstable due to comminution of the anterior cortex at the fracture size. A lag screw was then place from anterior superior to posterior inferior by technique. Neutralization plate was then applied with an Arthrex anatomic distal locking plate. Nonlocking screws were drilled and filled proximally to bring the plate to the bone followed by unicortical locking screws in the distal fragment. Adequate reduction was appreciated on fluoroscopy. The wound was then irrigated and closure was performed with 3-0 vicryl followed by 3-0 nylon suture. Attention was then drawn to the medial aspect of the ankle. Curvilinear incision was made along the medial malleolus. Blunt dissection was taken down through subcutaneous tissues and saphenous vein/nerve was identified and protected. Periosteum was incised to reveal the fracture. Fracture hematoma was evacuated with irrigation and suction and interposed periosteum was removed. The posterior tibialis tendon was found to by entrapped in the fracture site posteriorly, this was carefully removed from the fracture site to allow for reduction. A 2.5mm drill was used to drill unicortically just proximal to the fracture line to allow for pointed reduction clamp placement. A pointed reduction clamp was then used to compress the fracture and approximation of the lateral cortex was able to be achieved but after initial reduction there appeared to by roughly 3-4 mm of anterior displacement. Reduction clamp was then removed and fracture size was opened once more and further debridement of fracture site was performed and no soft tissue appeared to be in the fracture site. Reduction clamp was the re-applied and acceptable reduction was achieved viewed on fluoroscopy. K-wire was then inserted along the posterior and anterior aspect of the malleoli and advanced across the fracture site. Near cortex was drilled and measured and 2 55mm 4.0 partially threaded cannulated screws were inserted under power followed by final tightening with hand. Final images were taken revealing acceptable reduction of fracture fragments and a minimally displaced stable posterior malleolus avulsion fracture. External stress was performed and no instability was appreciated. Wound was irrigated and closed with 3-0 VIcryl suture followed by 3-0 nylon. Adaptic, 4x4s, and a plaster splint was applied. Tourniquet was let down and the digits had immediate perfusion. Alek RIVAS was present during the case and assisted in fracture reduction, hardware placement and retraction. The patient was then woken by the department of anesthesia and transferred to PACU in stable condition. Harjit Gambino D.O. Orthopedic Surgeon
== END | disposition home or self-care (01) ==
LOC: OR 09:09
PROVIDERS: ATTEND Orthopaedic Surgery Hand Surgery
DX: S82.851A Displaced trimalleolar fracture of right lower leg, initial encounter for closed fracture (principal); W10.9XXA Fall (on) (from) unspecified stairs and steps, initial encounter; Y92.009 Unspecified place in unspecified non-institutional (private) residence as the place of occurrence of the external cause; G89.18 Other acute postprocedural pain; I10 Essential (primary) hypertension; F17.210 Nicotine dependence, cigarettes, uncomplicated; Z80.7 Family history of other malignant neoplasms of lymphoid, hematopoietic and related tissues; Z88.0 Allergy status to penicillin
CPT/HCPCS: 27822; 64999; 64445; 76942; 81025; 73600; C1713 ×2; J2250; J1200; J1100; J2405; J0690; J2001; J3010; J1170 ×2; J2795; J2704; J0330

== ENCOUNTER 2024-01-16 05:51 | Emergency (ER) | payer OTHER ==
--- NOTE | 2024-01-16 06:31 | ED ---
Arrhythmia/Palpitations HPI - General Chief Complaint: Arrhythmia/Palpitations Stated Complaint: Heart Racing, Headache Time Seen by Provider: 01/16/24 06:29 Source: patient, family, RN notes reviewed Mode of arrival: ambulatory Limitations: no limitations - History of Present Illness Initial Comments: 28-year-old female presented to the ER with a chief complaint of palpitations. Patient reports a past medical history or benign heart murmur during and has not followed up with a scientist engineer. She reports she woke up about 2 hours ago with her heart racing. She states she was feeling mildly short of breath and experiencing lightheadedness during this episode. She denies any chest pain then or currently. She reports she occasionally gets these racing episodes but is able to resolve them with relaxation techniques. She states they were unsuccessful this morning which brought her to the ER. Denies any history of blood clots, blood thinner use or control use. Denies nausea, vomiting, abdominal pain, constipation/diarrhea, urinary complaints or peripheral edema. - Related Data Previous Rx's Medication Instructions Recorded HYDROcodone/APAP 5-325MG [[place] 1 - 2 tab PO Q6HR PRN #24 tab 10/09/21 5-325] Allergies Allergy/AdvReac Type Severity Reaction Status Date / Time Penicillins Allergy Rash/Hives Verified 01/16/24 05:54 Review of Systems ROS Statement: Those systems with pertinent positive or pertinent negative responses have been documented in the HPI. ROS Other: All systems not noted in ROS Statement are negative. Past Medical History Past Medical History: Hypertension Additional Past Medical History / Comment(s): Hx Preeclampsia with last , continued with elevated BP for short time afterward but resolved now. History of Any Multi-Drug Resistant Organisms: None Reported Past Surgical History: Orthopedic Surgery Additional Past Surgical History / Comment(s): Right knee- age 11, left shoulder- age 14. Past Anesthesia/Blood Transfusion Reactions: No Reported Reaction Past Psychological History: No Psychological Hx Reported Smoking Status: Current every day smoker Past Alcohol Use History: Occasional Past Drug Use History: None Reported - Past Family History Mother Family Medical History: Cancer Additional Family Medical History / Comment(s): Lymphoma, multiple myleoma. General Exam Limitations: no limitations General appearance: alert, in no apparent distress Head exam: Present: atraumatic, normocephalic, normal inspection Eye exam: Present: normal appearance, PERRL, EOMI. Absent: scleral icterus, conjunctival injection, periorbital swelling Pupils: Present: normal accommodation ENT exam: Present: normal exam, normal oropharynx, mucous membranes moist Neck exam: Present: normal inspection. Absent: tenderness, meningismus, lymphadenopathy Respiratory exam: Present: normal lung sounds bilaterally. Absent: respiratory distress, wheezes, rales, rhonchi, stridor Cardiovascular Exam: Present: normal rhythm, tachycardia, normal heart sounds Extremities exam: Present: normal inspection, full ROM, normal capillary refill. Absent: tenderness, pedal edema, joint swelling, calf tenderness Neurological exam: Present: alert, oriented X3, CN II-XII intact Psychiatric exam: Present: normal mood, anxious (mild) Skin exam: Present: warm, dry, intact, normal color. Absent: rash Course Vital Signs 01/16/24 01/16/24 01/16/24 05:51 06:30 07:58 Temperature 98.1 F 98.6 F Pulse Rate 125 H 88 77 Respiratory 22 18 18 Rate Blood Pressure 168/102 158/106 124/81 O2 Sat by Pulse 95 99 100 Oximetry Medical Decision Making - Medical Decision Making Was pt. sent in by a medical professional or institution (, PA, SAIL REPAIRER, urgent care, hospital, or custodial...) When possible be specific @ -No Did you speak to anyone other than the patient for history (EMS, parent, family, police, friend...)? What history was obtained from this source @ - aiding in HPI. Did you review nursing and triage notes (agree or disagree)? Why? @ -I reviewed and agree with nursing and triage notes Were old charts reviewed (outside hosp., previous admission, EMS record, old EKG, old radiological studies, urgent care reports/EKG's, custodial records)? Report findings @ -No old charts were reviewed Differential Diagnosis (chest pain, altered mental status, abdominal pain women, abdominal pain men, vaginal bleeding, weakness, fever, dyspnea, syncope, headache, dizziness, GI bleed, back pain, seizure, CVA, palpatations, mental health, musculoskeletal)? @ -Differential Palpitations: Ventricular arrhythmias, atrial arrhythmias, m yocardial infarction, anemia, thyrotoxicosis, electrolyte imbalance, hypokalemia, pulmonary embolism, pulmonary disease, drugs, alcohol, anxiety, stress....This is not meant to be an all-inclusive list. EKG interpreted by me (3pts min.). @ -As above X-rays interpreted by me (1pt min.). @ -Chest x-ray interpreted by me negative for acute cardiopulmonary process. CT interpreted by me (1pt min.). @ -None done U/S interpreted by me (1pt. min.). @ -None done What testing was considered but not performed or refused? (CT, X-rays, U/S, labs)? Why? @ -None What meds were considered but not given or refused? Why? @ -None Did you discuss the management of the patient with other professionals (pro fessionals i.e. , PA, SAIL REPAIRER, lab, RT, psych nurse, medical social consultant, barrel cutter, teacher, communications officer, bottle caser)? Give summary @ -No Was smoking cessation discussed for >3mins.? @ -I discussed smoking cessation for greater than 3 minutes. The risk of smoking were discussed with the patient including but not limited to risks of cancer, stroke, coronary artery disease and COPD. Also discussed with patient were multiple methods of quitting smoking. Lastly we discussed the financial cost of smoking. Was critical care preformed (if so, how long)? @ -No Were there social determinants of health that impacted care today? How? (Homelessness, low income, unemployed, alcoholism, drug addiction, t ransportation, low edu. Level, literacy, decrease access to med. care, prison, rehab)? @ -Patient does not currently have a primary care physician. Was there de-escalation of care discussed even if they declined (Discuss DNR or withdrawal of care, Hospice)? DNR status @ -No What co-morbidities impacted this encounter? (DM, HTN, Smoking, COPD, CAD, Cancer, CVA, ARF, Chemo, Hep., AIDS, mental health diagnosis, sleep apnea, morbid obesity)? @ -Smoker Was patient admitted / discharged? Hospital course, mention meds given and route, prescriptions, significant lab abnormalities, going to OR and other pertinent info. @ -Discharge. 28-year-old female presented to the ER with a chief complaint of palpitations. History and physical exam completed. Vitals upon arrival remarkable for tachycardia at 125 and blood pressure 168/102. Patient no signs of acute distress and nontoxic-appearing. Exam remarkable for tachycardia otherwise unremarkable. Laboratory studies obtained unimpressive. D-dimer 0.48, troponin <0.012. EKG showing sinus tachycardia no acute ST segment or T wave abnormalities. Chest x-ray interpreted by me negative for acute cardiopulmonary process. Patient received IV Toradol for symptom control. Upon reevaluation, patient resting comfortably in exam room in no signs of acute distress. Tachycardia and elevated blood pressure resolved without intervention. Vitals upon reevaluation remarkable for heart rate 77, blood pressure 124/81. Symptoms believed to be anxiety in nature. Heart score 1. Patient stable for discharge at this time. Strict return parameters discussed. Patient discharged in stable condition with follow-up to PCP. Referrals given. Patient verbally expressed understanding and agreed with care plan. Case discussed with ED attending, Dr. Rao. Undiagnosed new problem with uncertain prognosis? @ -No Drug Therapy requiring intensive monitoring for toxicity (Heparin, Nitro, Insulin, Cardizem)? @ -No Were any procedures done? @ -No Diagnosis/symptom? @ -Palpitations Acute, or Chronic, or Acute on Chronic? @ -Acute Uncomplicated (without systemic symptoms) or Complicated (systemic symptoms)? @ -Uncomplicated Side effects of treatment? @ -No Exacerbation, Progression, or Severe Exacerbation? @ -No Poses a threat to life or bodily function? How? (Chest pain, USA, AR, pneumonia, PE, COPD, DKA, ARF, appy, cholecystitis, CVA, Diverticulitis, Homicidal, Suicidal, threat to staff... and all critical care pts) @ -No - Lab Data Result diagrams: 01/16/24 06:27 01/16/24 06:27 Lab Results 01/16/24 01/16/24 01/16/24 Range/Units 06:27 06:27 06:27 WBC 7.3 (3.8-10.6) k/uL RBC 3.89 (3.80-5.40) m/uL Hgb 12.8 (11.4-16.0) gm/dL Hct 39.2 (34.0-46.0) % MCV 100.8 H (80.0-100.0) fL MCH 32.8 (25.0-35.0) pg MCHC 32.6 (31.0-37.0) g/dL RDW 12.2 (11.5-15.5) % Plt Count 325 (150-450) k/uL MPV 8.0 Neutrophils % 53 % Lymphocytes % 39 % Monocytes % 4 % Eosinophils % 2 % Basophils % 1 % Neutrophils # 3.9 (1.3-7.7) k/uL Lymphocytes # 2.9 (1.0-4.8) k/uL Monocytes # 0.3 (0-1.0) k/uL Eosinophils # 0.1 (0-0.7) k/uL Basophils # 0.0 (0-0.2) k/uL PT 10.1 (10.0-12.5) sec INR 0.9 (<1.2) APTT 23.5 (22.0-30.0) sec D-Dimer 0.48 (<0.60) mg/L FEU Sodium 138 (137-145) mmol/L Potassium 3.9 (3.5-5.1) mmol/L Chloride 110 H (98-107) mmol/L Carbon Dioxide 14 L (22-30) mmol/L Anion Gap 14 mmol/L BUN 6 L (7-17) mg/dL Creatinine 0.60 (0.52-1.04) mg/dL Est GFR (CKD-EPI)AfAm >90 (>60 ml/min/1.73 sqM) Est GFR (CKD-EPI)NonAf >90 (>60 ml/min/1.73 sqM) Glucose 121 H (74-99) mg/dL Calcium 9.7 (8.4-10.2) mg/dL Magnesium 1.9 (1.6-2.3) mg/dL Total Bilirubin 0.4 (0.2-1.3) mg/dL AST 44 H (14-36) U/L ALT 34 (4-34) U/L Alkaline Phosphatase 45 (38-126) U/L Troponin I (0.000-0.034) ng/mL Total Protein 7.9 (6.3-8.2) g/dL Albumin 4.7 (3.5-5.0) g/dL 01/16/24 Range/Units 06:27 WBC (3.8-10.6) k/uL RBC (3.80-5.40) m/uL Hgb (11.4-16.0) gm/dL Hct (34.0-46.0) % MCV (80.0-100.0) fL MCH (25.0-35.0) pg MCHC (31.0-37.0) g/dL RDW (11.5-15.5) % Plt Count (150-450) k/uL MPV Neutrophils % % Lymphocytes % % Monocytes % % Eosinophils % % Basophils % % Neutrophils # (1.3-7.7) k/uL Lymphocytes # (1.0-4.8) k/uL Monocytes # (0-1.0) k/uL Eosinophils # (0-0.7) k/uL Basophils # (0-0.2) k/uL PT (10.0-12.5) sec INR (<1.2) APTT (22.0-30.0) sec D-Dimer (<0.60) mg/L FEU Sodium (137-145) mmol/L Potassium (3.5-5.1) mmol/L Chloride (98-107) mmol/L Carbon Dioxide (22-30) mmol/L Anion Gap mmol/L BUN (7-17) mg/dL Creatinine (0.52-1.04) mg/dL Est GFR (CKD-EPI)AfAm (>60 ml/min/1.73 sqM) Est GFR (CKD-EPI)NonAf (>60 ml/min/1.73 sqM) Glucose (74-99) mg/dL Calcium (8.4-10.2) mg/dL Magnesium (1.6-2.3) mg/dL Total Bilirubin (0.2-1.3) mg/dL AST (14-36) U/L ALT (4-34) U/L Alkaline Phosphatase (38-126) U/L Troponin I <0.012 (0.000-0.034) ng/mL Total Protein (6.3-8.2) g/dL Albumin (3.5-5.0) g/dL - EKG Data -: EKG Interpreted by Me EKG Comments: EKG taken at 5: 58 showing sinus tachycardia with inverted t waves in lead III. No other acute ST segment or T wave abnormalities. Ventricular rate 112, MS in terval 120, QRS duration 82, QT/QTc 293/359. - Radiology Data Radiology results: report reviewed, image reviewed Disposition Clinical Impression: Palpitations Disposition: HOME SELF-CARE Condition: Stable Instructions (If sedation given, give patient instructions): Heart Palpitations (ED) Additional Instructions: Please follow-up with PCP in the next 1 to 2 days. Return to the ER for any new or worsening concerns. Is patient prescribed a controlled substance at d/c from ED?: No Referrals: None,Stated [Primary Care Provider] - 1-2 days Forms: Area PCPs Time of Disposition: 07:52
--- NOTE | 2024-01-16 06:41 | XR ---
EXAMINATION TYPE: XR chest 2V DATE OF EXAM: 01/16/2024 COMPARISON: Prior chest x-ray September 02, 2018 HISTORY: Palpitations TECHNIQUE: Frontal and lateral views of the chest are obtained. FINDINGS: There is no focal air space opacity, pleural effusion, or pneumothorax seen. The cardiac silhouette size is stable and within normal limits. The osseous structures are intact. IMPRESSION: No acute process.
[2024-01-16] MEDS: KETOROLAC 15 MG/ML 1 ML VIAL IVP STA (06:47)
[2024-01-16 06:51] VITALS: RESP 18
[2024-01-16 07:14] LABS: Basophils % (A) 1 %; Eosinophils # (A) 0.1 k/uL (0-0.7); Eosinophils % (A) 2 %; HCT 39.2 % (34.0-46.0); HGB 12.8 gm/dL (11.4-16.0); Lymphocytes # (A) 2.9 k/uL (1.0-4.8); Lymphocytes % (A) 39 %; MCH 32.8 pg (25.0-35.0); MCHC 32.6 g/dL (31.0-37.0); MCV 100.8 fL (80.0-100.0); Monocytes # (A) 0.3 k/uL (0-1.0); Monocytes % (A) 4 %; Neutrophils # (A) 3.9 k/uL (1.3-7.7); Neutrophils % (A) 53 %; Platelet Count 325 k/uL (150-450); RBC 3.89 m/uL (3.80-5.40); RDW 12.2 % (11.5-15.5); WBC 7.3 k/uL (3.8-10.6)
[2024-01-16 07:21] LABS: ALT 34 U/L (4-34); AST 44 U/L (14-36); African American GFR (CKD) >90 (>60 ml/min/1.73 sqM); Albumin 4.7 g/dL (3.5-5.0); Alkaline Phosphatase 45 U/L (38-126); Anion Gap 14 mmol/L; Blood Urea Nitrogen 6 mg/dL (7-17); Calcium 9.7 mg/dL (8.4-10.2); Carbon Dioxide 14 mmol/L (22-30); Chloride 110 mmol/L (98-107); Glucose 121 mg/dL (74-99); Magnesium 1.9 mg/dL (1.6-2.3); Non-African American GFR(CKD) >90 (>60 ml/min/1.73 sqM); Potassium 3.9 mmol/L (3.5-5.1); Sodium 138 mmol/L (137-145); Total Bilirubin 0.4 mg/dL (0.2-1.3); Total Protein 7.9 g/dL (6.3-8.2)
[2024-01-16 07:27] LABS: INR 0.9 (<1.2); Partial Thromboplastin Time 23.5 sec (22.0-30.0); Prothrombin Time 10.1 sec (10.0-12.5)
[2024-01-16 08:01] VITALS: BP 124/81; PULSE 77; TEMP 98.6
== END 2024-01-16 08:01 | disposition home or self-care (01) ==
LOC: EC 05:51
DX: R00.2 Palpitations (principal); F17.200 Nicotine dependence, unspecified, uncomplicated; Z88.0 Allergy status to penicillin
CPT/HCPCS: 99285; 96374; 36415; 93005; 85379; 80053; 83735; 84484; 85025; 85610; 85730; 71046; 99406; J1885

== ENCOUNTER 2025-02-10 00:22 | Emergency (ER) | payer OTHER ==
--- NOTE | 2025-02-10 00:58 | ED ---
General Adult HPI - General Source: patient Mode of arrival: ambulatory Limitations: no limitations, physical limitation <Dusty Hamilton - Last Filed: 02/10/25 00:58> <Agustin Oviedo - Last Filed: 02/10/25 05:10> - General Chief complaint: Extremity Injury, Lower Stated complaint: Can't put any weight on r ankle Time Seen by Provider: 02/10/25 00:43 - History of Present Illness Initial comments: 29-year-old female presenting with chief complaint of right ankle pain. States that she was trying to get into the truck when she slipped and fell. She has pain and swelling over the lateral malleolus. She has history of previous surgery to this ankle 3 years ago. States that she cannot bear weight without severe pain. No numbness or tingling. She can still move her toes. (Dusty Hamilton) - Related Data Previous Rx's Medication Instructions Recorded HYDROcodone/APAP 5-325MG [[place] 1 - 2 tab PO Q6HR PRN #24 tab 10/09/21 5-325] Allergies Allergy/AdvReac Type Severity Reaction Status Date / Time Penicillins Allergy Rash/Hives Verified 02/10/25 00:46 Review of Systems ROS Other: All systems not noted in ROS Statement are negative. <Dusty Hamilton - Last Filed: 02/10/25 00:58> ROS Other: All systems not noted in ROS Statement are negative. <Agustin Oviedo - Last Filed: 02/10/25 05:10> ROS Statement: Those systems with pertinent positive or pertinent negative responses have been documented in the HPI. Past Medical History Past Medical History: Hypertension Additional Past Medical History / Comment(s): Hx Preeclampsia with last , continued with elevated BP for short time afterward but resolved now. History of Any Multi-Drug Resistant Organisms: None Reported Past Surgical History: Orthopedic Surgery Additional Past Surgical History / Comment(s): Right knee- age 11, left shoulder- age 14. Past Anesthesia/Blood Transfusion Reactions: No Reported Reaction Past Psychological History: No Psychological Hx Reported Smoking Status: Current every day smoker Past Alcohol Use History: Occasional Past Drug Use History: None Reported - Past Family History Mother Family Medical History: Cancer Additional Family Medical History / Comment(s): Lymphoma, multiple myleoma. <Dusty Hamilton - Last Filed: 02/10/25 00:58> General Exam Limitations: no limitations, physical limitation General appearance: alert, in no apparent distress Head exam: Present: atraumatic, normocephalic, normal inspection Eye exam: Present: normal appearance, EOMI Neck exam: Present: normal inspection. Absent: meningismus Respiratory exam: Absent: respiratory distress Cardiovascular Exam: Present: regular rate Right Ankle exam: Present: tenderness, swelling. Absent: full ROM Neurological exam: Present: alert, oriented X3 Psychiatric exam: Present: normal affect, normal mood Skin exam: Present: warm, dry, normal color <Dusty Hamilton - Last Filed: 02/10/25 00:58> Course Vital Signs 02/10/25 00:40 Temperature 98.1 F Pulse Rate 90 Respiratory 18 Rate Blood Pressure 127/84 O2 Sat by Pulse 99 Oximetry Medical Decision Making <Agustin Oviedo - Last Filed: 02/10/25 05:10> - Medical Decision Making Patient care signed out to me by Winifred Hamilton physician music library assistant. Plan at signout was to follow-up with pending radiology imaging reads. X-ray was reviewed by me showing no obvious fractures. There does appear to be intact hardware. At 5:09 AM patient did not want to be in the hospital waiting any longer for radiology read. She is told to not bear any weight on that ankle until she is seen by orthopedic surgery. Patient will follow-up with orthopedic surgery clinic. (Agustin Oviedo) Disposition <Dusty Hamilton - Last Filed: 02/10/25 00:58> Is patient prescribed a controlled substance at d/c from ED?: No Time of Disposition: 05:10 <Agustin Oviedo - Last Filed: 02/10/25 05:10> Clinical Impression: Ankle pain Disposition: HOME SELF-CARE Condition: Fair Instructions (If sedation given, give patient instructions): Ankle Sprain (ED) Referrals: Vinny Castellanos DO [Doctor of Osteopathic Medicine] - 1-2 days
[2025-02-10] MEDS: IBUPROFEN 600 MG TAB PO STA (00:59)
[2025-02-10] MEDS: ACETAMINOPHEN TAB 325 MG TAB PO STA (00:59)
[2025-02-10 05:12] VITALS: BP 120/76; PULSE 74; RESP 16; TEMP 98.2
--- NOTE | 2025-02-10 05:47 | XR ---
EXAM: XR Right Ankle Complete, 3 or More Views CLINICAL HISTORY: ITS.REASON XR Reason: injury TECHNIQUE: Frontal, lateral and oblique views of the right ankle. COMPARISON: No relevant prior studies available. FINDINGS: Bones/joints: Unremarkable. No fracture or malalignment. Postsurgical changes in the distal fibula and medial malleolus. No hardware complication. Soft tissues: Soft tissue edema medially. IMPRESSION: 1. No fracture or malalignment. 2. Soft tissue edema medially.
== END 2025-02-10 05:18 | disposition home or self-care (01) ==
LOC: EC 00:22
DX: M25.571 Pain in right ankle and joints of right foot (principal); F17.200 Nicotine dependence, unspecified, uncomplicated; Z88.0 Allergy status to penicillin; W01.0XXA Fall on same level from slipping, tripping and stumbling without subsequent striking against object, initial encounter
CPT/HCPCS: 99283